=== PATIENT | female | born 1955 | race Caucasian/White ===

== ENCOUNTER 2021-09-08 08:21 | Inpatient (IN) | payer BC, MEDICARE, SELFPAY ==
[2021-09-08] VITALS (18 sets, daily range): BP systolic 63–199; BP diastolic 49–142; PULSE 106–134; RESP 11–33; O2SAT 84–96; BMI 28.7
--- NOTE | 2021-09-08 08:44 | ECG_ITS ---
[facility] Test Date: 2021-09-08 Pat Name: Guanakito Ferraro Department: Room: Gender: Female Regional Business Development Manager: : 1955 Requested By: Evert Sanchez Order Number: [id number] Liyah MD: Axel Weeks M.D. Measurements Intervals [place] Rate: 113 P: 62 [place]: 139 QRS: 44 QRSD: 77 T: 37 QT: 286 QTc: 393 Interpretive Statements SINUS TACHYCARDIA POSSIBLE LEFT ATRIAL ENLARGEMENT [-0.1mV P-WAVE IN V1/V2] NONSPECIFIC ST & T-WAVE ABNORMALITY ST elevation in the precordial leads suggesting recent anteroseptal PR ABNORMAL RHYTHM ECG INTERPRETATION BASED ON A DEFAULT AGE OF 40 YEARS No previous ECG available for comparison Electronically Signed On 09-08-2021 17:12:06 CDT by Axel Weeks M.D. [id number] f
--- NOTE | 2021-09-08 08:46 | ECG_ITS ---
[facility] Test Date: 2021-09-08 Pat Name: Guanakito Ferraro Department: Room: Gender: Female Automotive Consultant: : 1955 Requested By: Evert Sanchez Order Number: [id number] Liyah MD: Axel Weeks M.D. Measurements Intervals [place] Rate: 119 P: 69 SD: 144 QRS: 51 QRSD: 83 T: 48 QT: 296 QTc: 418 Interpretive Statements SINUS TACHYCARDIA POSSIBLE RIGHT ATRIAL ENLARGEMENT [0.25mV P-WAVE] POSSIBLE LEFT ATRIAL ENLARGEMENT [-0.1mV P-WAVE IN V1/V2] MARKED ST ELEVATION, CONSIDER SEPTAL INJURY [MARKED ST ELEVATION W/O NORMALLY INFLECTED T-WAVE IN V1/V2] ACUTE IN INTERPRETATION BASED ON A DEFAULT AGE OF 40 YEARS Compared to ECG 09/08/2021 08:29:21 ST (T wave) deviation now present T-wave abnormality no longer present Electronically Signed On 09-08-2021 17:12:29 CDT by Axel Weeks M.D. [id number] f
--- NOTE | 2021-09-08 08:46 | W.ED.SOB ---
HPI - SOB/Dyspnea General: Chief Complaint: Shortness of Breath/Dyspnea Stated Complaint: RESP DISTRESS Time Seen by Provider: 09/08/21 08:26 History of Present Illness: HPI Narrative: 66-year-old female presents the emergency department chief complaint of shortness of breath and dyspnea. Patient reports that this is been ongoing since last night. Patient reports a longstanding history of smoking about a 61-hmyg-ainr history. Patient does not recall any previous diagnosis of either cardiac or pulmonary issues. She does report she just got back from a long car trip. She reports no calf pain swelling or tenderness. Patient not report any recent infections or illnesses or any other associated symptoms. Associated symptoms: Reports chest pain; Deny abdominal pain, extremity pain, fever(s), nausea or vomiting Review of Systems General: Reports: 10 or more systems reviewed and unremarkable except in HPI and below Const: Denies: fever(s), chills, fatigue or malaise Eyes: Denies: change in vision or blurry vision Card: Reports: chest pain Resp: Reports: dyspnea and wheezing; Denies: productive cough GI: Denies: abdominal pain, nausea or vomiting : Denies: flank pain Musc: Denies: extremity pain or extremity swelling Skin/Breast: Denies: rash or pruritus Neuro: Denies: headache(s) Psych: Denies: anxiety or depression David/Lymph: Denies: easy bleeding All/Imm: Denies: urticaria, throat swelling or facial swelling Physical Exam Const: COMMON NORMALS: no acute distress, patient oriented x3 and healthy appearing HENMT: COMMON NORMALS: normocephalic and atraumatic HEAD & SCALP: normocephalic and atraumatic Eye: COMMON NORMALS: Equal, round and reactive pupils present and EOMs intact bilaterally PUPIL: Yes Equal, round and reactive pupils present Neck/C-Spine: COMMON NORMALS: full ROM, supple and no JVD Lymph: LYMPHATIC: no lymphadenopathy noted Chest: COMMONS NORMALS: normal inspection of the chest and normal palpation of entire chest wall Resp: COMMON NORMALS: normal respiratory effort, No retractions and clear to auscultation bilaterally (Diminished breath sounds appreciated bilaterally with mild scattered expira) EFFORT & INSPECTION: Yes able to speak in complete sentences and Yes symmetric chest movement AUSCULTATION: clear to auscultation bilaterally (Diminished breath sounds appreciated bilaterally with mild scattered expira) Cardio: COMMON NORMALS: no JVD, regular rate and regular rhythm RATE: regular rate and tachycardic RHYTHM: regular rhythm GI: COMMON NORMALS: Normal to inspection, nondistended, normoactive bowel sounds present, Soft to palpation and non-tender INSPECTION: Yes normal to inspection PALPATION: Yes Soft to palpation : COMMON NORMALS: Yes no CVA tenderness BLADDER/KIDNEY EXAM: Yes no CVA tenderness Back/Pelvis: COMMON NORMALS: no CVA tenderness Extremity: COMMON NORMALS: normal to inspection and full ROM Neuro: COMMON NORMALS: patient oriented x3, CN's II-XII intact bilaterally, moves all extremities and no focal motor deficits Psych: COMMON NORMALS: mental status grossly normal, Normal thought process present, cooperative and normal affect THOUGHT PROCESS: Normal thought process present Skin: COMMON NORMALS: no rashes or lesions noted GENERAL SKIN EXAM: no rashes or lesions noted Course ED course: During the patient's time the ED department after about 20 minutes in the ER patient developed signs midsternal chest pain which patient was noted to have EKG changes with more hyperacute ST segment elevations in V2 and V3 Dr. Mckeon on for cardiology immediately contacted recommends to alert patient is STEMI alert recommend start the patient on heparin aspirin and Plavix per protocol. Vital Signs: Vital signs: Vital Signs Pulse Rate 126 H 09/08/21 09:10 Respiratory Rate 31 H 09/08/21 09:10 Blood Pressure 198/142 09/08/21 09:10 Pulse Oximetry 84 L 09/08/21 09:10 MDM - SOB/Dyspnea Medical Decision Making Due to the patient's symptoms and condition lab work and imaging will be obtained we will continue to follow Lab Data : 09/08/21 08:30 09/08/21 08:30 Labs/Radiology: Laboratory Results WBC 14.4 10^3/uL (4.0-10.0) H 09/08/21 08:30 RBC 4.90 10^6/uL (4.1-5.3) 09/08/21 08:30 Hgb 14.8 g/dL (11.5-15.3) 09/08/21 08:30 Hct 44.6 % (37.0-47.0) 09/08/21 08:30 MCV 91.0 fl (81-99) 09/08/21 08:30 MCH 30.2 pg (28.0-34.0) 09/08/21 08:30 MCHC 33.2 g/dL (30.0-36.0) 09/08/21 08:30 RDW 14.2 % (12.1-15.1) 09/08/21 08:30 Plt Count 243 10^3/cmm (130-400) 09/08/21 08:30 MPV 12.4 fL (7.4-10.4) H 09/08/21 08:30 Neut % (Auto) 82.7 % 09/08/21 08:30 Lymph % (Auto) 12.1 % 09/08/21 08:30 Whitley % (Auto) 3.6 % 09/08/21 08:30 Eos % (Auto) 0.7 % 09/08/21 08:30 Baso % (Auto) 0.6 % 09/08/21 08:30 Neut # (Auto) 11.90 10^3/uL (1.8-7.7) H 09/08/21 08:30 Lymph # (Auto) 1.7 10^3/uL (0.8-4.8) 09/08/21 08:30 Whitley # (Auto) 0.5 10^3/uL (0.2-0.9) 09/08/21 08:30 Eos # (Auto) 0.1 10^3/uL (0.0-0.8) 09/08/21 08:30 Baso # (Auto) 0.1 10^3/uL (0.0-0.1) 09/08/21 08:30 Nucleated RBC % (auto) 0 % 09/08/21 08:30 Nucleated RBCs # 0.0 /100WBC 09/08/21 08:30 Sodium 140 mmol/L (136-145) 09/08/21 08:30 Potassium 3.7 mmol/L (3.5-5.1) 09/08/21 08:30 Chloride 104 mmol/L (98-107) 09/08/21 08:30 Carbon Dioxide 20 mmol/L (22-29) L 09/08/21 08:30 Anion Gap 19.7 (5-19) H 09/08/21 08:30 BUN 17 mg/dL (8-23) 09/08/21 08:30 Creatinine 1.0 mg/dL (0.5-0.9) H 09/08/21 08:30 GFR Calculation 55.1 mL/min (90-130) L 09/08/21 08:30 Glucose 142 mg/dL (65-115) H 09/08/21 08:30 Calculated Osmolality 294 mOsm/kg (285-295) 09/08/21 08:30 Calcium 9.2 mg/dL (8.5-10.5) 09/08/21 08:30 Total Bilirubin 0.4 mg/dL (0.15-1.2) 09/08/21 08:30 AST 20 U/L (0-32) 09/08/21 08:30 ALT 24 U/L (0-33) 09/08/21 08:30 Alkaline Phosphatase 121 IU/L (35-105) H 09/08/21 08:30 Troponin T Baseline 229 ng/L (0-10) H* 09/08/21 08:30 NT-Pro-B Natriuret Pep 2502 pg/mL (0-125) H 09/08/21 08:30 Total Protein 7.4 g/dL (6.6-8.7) 09/08/21 08:30 Albumin 4.5 g/dL (3.5-5.2) 09/08/21 08:30 Globulin 2.9 g/dL (1.3-4.6) 09/08/21 08:30 Discharge Plan Discharge Patient Disposition: Admitted As Inpatient Clinical Impression: ST elevation (STEMI) myocardial infarction Condition: Stable Coding Level of Care Code ED Anesthesiology Medical Doctor for Heidy Fwd Exam Comprehensive
[2021-09-08 08:58] LABS: Basophils # 0.1 10^3/uL (0.0-0.1); Basophils % 0.6 %; Eosinophils # 0.1 10^3/uL (0.0-0.8); Eosinophils % 0.7 %; Hematocrit 44.6 % (37.0-47.0); Hemoglobin 14.8 g/dL (11.5-15.3); Lymphocytes # 1.7 10^3/uL (0.8-4.8); Lymphocytes % 12.1 %; Mean Corpuscular HGB Conc 33.2 g/dL (30.0-36.0); Mean Corpuscular Hemoglobin 30.2 pg (28.0-34.0); Mean Platelet Volume 12.4 fL (7.4-10.4); Monocytes # 0.5 10^3/uL (0.2-0.9); Monocytes % 3.6 %; Neutrophils % 82.7 %; Nucleated Red Blood Cells % 0 %; Platelet Count 243 10^3/cmm (130-400); Red Cell Distribution Width 14.2 % (12.1-15.1); White Blood Count 14.4 10^3/uL (4.0-10.0)
[2021-09-08] MEDS: ondansetron 2 mg/ML SDV 2 mL 4 MG IVP (09:03)
[2021-09-08] MEDS: fentaNYL 50 mcg/mL INJ 2mL IVP ×2 (09:04→12:01)
[2021-09-08] MEDS: nitroglycerin 0.4 mg sublingual Tablet SUBLINGUAL (09:04)
--- NOTE | 2021-09-08 09:05 | PC.NURSE ---
DR. QUINTANILLA AT BEDSIDE SPEAKING WITH PT.
[2021-09-08] MEDS: sodium chloride 0.9% 500 ML 999 ML IV (09:09)
[2021-09-08] MEDS: heparin 5,000 unit/mL INJ 1 mL 4000 UNIT IVP (09:13)
--- NOTE | 2021-09-08 09:13 | XACV_ITS ---
Exam Room: 2 Ht: 168 cm Wt: 81 kg BSA: 1.96 m2 Gender: Female : 1955 Any Known Allergies: Codeine Exam Priority: Routine Procedure(s): Procedure Description: Diagnostic procedure Procedure Description: PCI procedure Procedure Description: Left Heart Catheterization Procedure Description: Drug Eluting Coronary Stent Procedure Description: PTCA Procedure Description: Miscellaneous Procedure Description: Angio-Seal Procedure Description: ACT Procedure Description: Coronary Angiography Diagnostic Cath Status: Emergency Diagnostic Findings * Left Main has no significant disease. * Circumflex has mild to moderate luminal irregularities. No significant stenosis.. * INDICATION: 66-year-old woman with past medical history of hypertension and hyperlipidemia who was not feeling well for 1 week. Started having shortness of breath for the last 8 to 12 hours. Early this morning she had significant chest and back discomfort that was 2 to 3 hours prior to EMS arrival.. EMS was called who brought her to the emergency room. Cardiology was contacted at 9:01 AM and as EKG was demonstrating anteroseptal/anterior leads ST elevation, STEMI alert was called and patient was brought to the cardiac Sterilization Tech emergently.. * Proximal Left Anterior Descendin% stenosis, JOSE: 2 flow. This is right before medium to large sized diagonal artery takeoff. Possible thrombus seen extending into ostial diagonal.. * Mid Right Coronary Artery: Moderate 60 to 70% stenosis.. * Coronary angiography shows right dominance. PCI Status: Emergency PCI Indication: Immediate PCI for STEMI Interventional Findings * Procedure detail: We obtained access in right common femoral artery using micropuncture. 6 Lithuanian XB 3.5 guide catheter was used to engage left main artery. Using 0.014 run-through guidewire we crossed proximal LAD stenosis and the wire was placed in the distal vessel. A second wire was put in the diagonal artery. We performed predilation of the vessel with 2.5 x 12 mm semicompliant balloon. This was followed by placement of 2.75 x 18 mm resolute Mobile drug-eluting stent. Proximal portion of the stent was postdilated with 3.0 x 8 mm NC balloon. There was pinching of the ostial diagonal artery. The run-through wire was advanced into the diagonal artery and ostial diagonal artery had balloon angioplasty performed with 2.5 x 12 mm semicompliant balloon. At this time final angiogram showed excellent stent expansion, no residual stenosis and good flow. Guidewire and guide catheter were removed. Femoral artery access site was closed with Angio-Seal. Patient left the Sterilization Tech in a stable condition.. * Proximal Left Anterior Descendin% stenosis treated with a AB TREK 2.50X12 RX BALLOON, MARY LOU R STEPHAN 2.75X18 CLEMENTE, and MDT CAMELIA EUPHORA RX [id number] BALLOON. 0% residual stenosis, JOSE: 3 flow. * 1st Diagonal: 70% stenosis treated with a AB TREK 2.50X12 RX BALLOON. 0% residual stenosis, JOSE: 3 flow. Conclusions 1. Critical, 2. 99% stenosis of proximal LAD 3. . 4. S/p successful revascularization with CLEMENTE x1. 5. Balloon angioplasty of ostial diagonal artery performed.. 6. Proximal Left Anterior Descending was treated with a Balloon, Drug Eluting Stent, and Balloon. 7. 1st Diagonal was treated with a Balloon. Recommendations * Transfer to ICU. * Stat echocardiogram. * Continue aspirin and Plavix for at least 1 year. * High intensity statin therapy. * Patient has residual moderate RCA stenosis. Will benefit from outpatient stress test. * Patient's blood pressure is stable at this time. However she has been staying tachycardic and is at risk of developing cardiogenic shock. Will need close monitoring. * Will need beta-faustina and lisinopril therapy initiated if blood pressure stays stable. Interventional RX Recommendation: PCI w/o planned CABG Diagnostic RX Recommendation: PCI w/o planned CABG Anticoagulation: Heparin Pressures Phase:Rest AO : 104 / 84 ( 94 ) @ 10:36:00 AM 141 / 108 ( 125 ) @ 10:56:00 AM 155 / 90 ( 117 ) @ 11:00:00 AM / ( -8 ) @ 11:10:00 AM 139 / 79 ( 105 ) @ 11:12:00 AM LV : 154 / 7 / 43 @ 11:12:00 AM 150 / 2 / 36 @ 11:12:00 AM Valves Phase:DefaultPhase AV : 13.0 @ 10:26:22 AM AV Mean Gradient: 11.0 @ 10:26:22 AM Clinical Evaluation EBL: 5mL-10mL Procedural Details Procedure Consent Obtained. Pre-Procedure Time Out. Identified patient by full name and date of as verbalized by the patient/guarantor. Does the consent match the physician's order: Yes. Accurate & Complete Informed Consent: Yes. Inpatient/Outpatient History & Physical on Chart: Yes. If H&P is completed, is and addenduem needed: No; If yes, is the addendum complete: N/A. Visualize and Verify Site with Patient/Guarantor: N/A. Relevant Radiology Images available: Yes. The risks, benefits, and alternatives of sedation and/or procedure were discussed by physician. The patient agrees to continue. Procedure started. Baseline sample Acquired. HR: 122 BPM. [facility] Clinical Fraility Score: 3: Managing Well. Sterilization Tech Indications: ACS <= 24 hours. Chest Pain Symptom Assessment: Typical Angina Symptoms. Cardiovascular Instability: Yes, if yes, Persistant Ischemic Symptoms. Correct patient, site and procedure confirmed by cath team. Current diagnosis: STEMI. PERRLA. Strong, equal hand vp product bilaterally. Lungs clear x 5 lobes. IV Site on Arrival: 18 gauge in the right anticubital. IV Site on Arrival: 18 gauge in the left anticubital. IV Fluids: 0.9% NaCl at KVO. mL infused prior to slab inspector. Oxygen started at 5liters/min via nasal canula. bilateral groins was prepped with chloroprep then draped in the usual sterile fashion. Physician notified. Physician arrived. Physician scrubbed in. Immediate Pre-Procedure Time Out. Correct Patient: Yes; Correct Procedure: Yes; Correct Site: Yes; Correct Patient Position: Yes; Correct Supplies: Yes; Dried Flammable Prep: Yes; Blood Products Available: N/A;. Lidocaine 1% infiltrated to the right groin. Current Diagnosis : STEMI. 100% NRB placed on the patient. Arterial access obtained with micropuncture set. Sheath upsized to a 6 Fr. 6 belarusian XB 3.5 guide catheter was inserted over the wire. Runthrough guidewire was advanced through the guide catheter to lesion in the diagonal. Runthrough guidewire was advanced through the guide catheter to lesion in the prox LAD. Inflation number : 1 A AB TREK 2.50X12 RX BALLOON was prepped and advanced across the Prox LAD , then inflated to 8 DIRK for 20 seconds. Inflation number: 2 The AB TREK 2.50X12 RX BALLOON was reinflated across the Prox LAD, to 8 DIRK for 0:21 seconds. Balloon out. PCI Indication : Immediate PCI for STEMI. Inflation Number : 3 A MARY LOU Howell STEPHAN 2.75X18 CLEMENTE -Lot Number# [id number] was prepped and advanced across the Prox LAD. The stent was deployed at 12 DIRK for 0:34 seconds. Exp. 2024-03-12. Stent balloon out over wire. LAD wire re-directed to the diagonal. Diagonal wire out. Results checked. Inflation number : 1 A AB TREK 2.50X12 RX BALLOON was prepped and advanced across the 1st Diag , then inflated to 8 DIRK for 0:13 seconds. Balloon out. Runthrough wire re-directed to the lesion in the Prox LAD. Inflation number : 4 A MARY LOU DENISE EUPHORA RX [id number] BALLOON was prepped and advanced across the Prox LAD , then inflated to 12 DIRK for 0:21 seconds. Balloon out. Results checked. Wire out. Guide catheter out. A 5 belarusian JR4 catheter in over wire. EDP Sample taken: LV 154/7,43; HR: 102 BPM; SpO2: 95%. Pullback taken: LV 150/2,36; AO 139/79(105); Mean: 11mmHg, Peak to Peak: 13mmHg, SEP: 23sec/min; HR: 101 BPM; SpO2: 94%. ACT drawn. Results 242 seconds. Therapeutic limits - pre-heparin administration 90-150 seconds and monitoring heparin during a vascular procedure >250 seconds. Multiple views taken of right coronary artery. Catheter removed over the standard wire. A Right femoral angiogram was performed to determine safe placement of closure device. A Angio-Seal VIP ([place]) was successful obtaining hemostatsis at the Right Femoral artery insertion site. Angioseal placed without complications. No signs or symptoms of hematoma noted. Sterile dressing applied per usual sterile fashion. Lot #[id number]. Exp. 2022-05-25. Post Procedure: Pulses reassessed and unchanged. PERRLA. Strong, equal hand vp product bilaterally. No VTE prophylaxis required. Medication's Wasted: Nitro = 49.8 mg. Medication's Wasted: Heparin = 4000 units. Total IV fluids: 100 mL. PCI Indication: STEMI. Post-op diagnosis: PCI of the Prox LAD, PTCA of the 1st diagonal. Complications: none. Estimated blood loss: 5mL-10mL. Responsiveness - Normal response to verbal stimuli; alert and oriented, PERRLA. Airway - Unaffected, no intervention required; spontaneous ventilation. Circulation: W/N/L, pulses unchanged. Nausea/Vomiting: No. Procedure completed. Patient transferred by bed to ICU. Vital chart was stopped. Access Site Site: Right Femoral artery Sheath Size: 6 Fr Hemostasis Method: Angio-Seal VIP ([place]) Hemostasis Success: Successful Procedure Medications Start: 9:27 AM Stop: 9:27 AM Medication: Versed Amount: 1 mg Route: I.V. Start: 9:27 AM Stop: 9:27 AM Medication: Fentanyl Amount: 50 mcg Route: I.V. Start: 9:32 AM Stop: 9:32 AM Medication: Heparin Amount: 5000 units Route: I.V. Start: 9:56 AM Stop: 9:56 AM Medication: Aggrastat 12.5 mg/250 mL Amount: 41 ml Route: I.V. bolus Start: 9:56 AM Stop: 9:56 AM Medication: Aggrastat 12.5 mg/250 mL Amount: 14.6 ml/hr Route: I.V. drip Start: 9:57 AM Stop: 9:57 AM Medication: Nitrogylcerin Amount: 200 mcg Route: I.C. Start: 10:01 AM Stop: 10:01 AM Medication: Versed Amount: 1 mg Route: I.V. Start: 10:01 AM Stop: 10:01 AM Medication: Fentanyl Amount: 50 mcg Route: I.V. Start: 10:12 AM Stop: 10:12 AM Medication: Heparin Amount: 2000 units Route: I.V. Start: 10:15 AM Stop: 10:15 AM Medication: Lasix (furosemide) Amount: 60 mg Route: I.V. Start: 10:21 AM Stop: 10:21 AM Medication: Brilinta Amount: 180 mg Route: P.O. I, the attending physician, have reviewed and verified all procedure medications. Yes, all medications given per verbal order Report Signatures Finalized by Bogdan Hendrix MD on 09/18/2021 10:08 AM
[2021-09-08] MEDS: clopidogrel 75 mg Tablet PO (09:15)
[2021-09-08 09:19] LABS: Alanine Aminotransferase 24 U/L (0-33); Albumin Level 4.5 g/dL (3.5-5.2); Alkaline Phosphatase 121 IU/L (35-105); Anion Gap 19.7 (5-19); Aspartate Amino Transferase 20 U/L (0-32); Blood Urea Nitrogen 17 mg/dL (8-23); Calcium 9.2 mg/dL (8.5-10.5); Carbon Dioxide 20 mmol/L (22-29); Chloride 104 mmol/L (98-107); Globulin 2.9 g/dL (1.3-4.6); Glomerular Filtration Rate 55.1 mL/min (90-130); Glucose 142 mg/dL (65-115); NT Pro B Type Natriuretic Pept 2502 pg/mL (0-125); Osmolality Calculated 294 mOsm/kg (285-295); Potassium 3.7 mmol/L (3.5-5.1); Sodium 140 mmol/L (136-145); Total Bilirubin 0.4 mg/dL (0.15-1.2); Total Protein 7.4 g/dL (6.6-8.7)
--- NOTE | 2021-09-08 09:19 | PM.HP ---
Providers/Chief Complaint Admitting Physician: Bogdan Hendrix MD/ Interventional Cardiology Chief Complaint: RESP DISTRESS History of Present Illness Guanakito Ferraro is a 66 year old female with past medical history of hyperlipidemia, hypertension and tobacco abuse who has presented to the hospital with shortness of breath that started last night. She was also having back and chest discomfort that started early this morning about 2 to 3 hours back EKG shows a ST elevations in anteroseptal leads. Cardiac Vascular Ultrasound Technologist was activated and patient brought to the cardiac Vascular Ultrasound Technologist for emergent cath. Review of Systems General: Reports: 10 or more systems reviewed and unremarkable except in HPI and below Const: Denies: fever(s), chills, fatigue or malaise Eyes: Denies: change in vision or blurry vision Card: Reports: chest pain Resp: Reports: dyspnea and wheezing; Denies: productive cough GI: Denies: abdominal pain, nausea or vomiting : Denies: flank pain Musc: Denies: extremity pain or extremity swelling Skin/Breast: Denies: rash or pruritus Neuro: Denies: headache(s) Psych: Denies: anxiety or depression David/Lymph: Denies: easy bleeding All/Imm: Denies: urticaria, throat swelling or facial swelling Medications/Allergies Home Medications Medication Instructions Recorded Confirmed Last Taken Type atorvastatin 20 mg tablet (Lipitor) 20 mg PO DAILY@172909/08/21 09/08/21 09/07/21 History escitalopram oxalate 20 mg tablet 20 mg PO DAILY@172909/08/21 09/08/21 09/07/21 History (Lexapro) ibuprofen 200 mg tablet 600 mg PO Q6H PRN 09/08/21 09/08/21 09/07/21 History losartan 50 mg tablet 50 mg PO DAILY@172909/08/21 09/08/21 09/07/21 History Allergies Allergy/AdvReac Type Severity Reaction Status Date / Time codeine Allergy ADR-Chest Verified 09/08/21 08:46 Pain PFSH Acute PFSH: Medical History Hyperlipidemia Hypertension Social History Smoking and tobacco status: current every day smoker Vitals/I&O/Wt Last Vital Signs Pulse 126 H 09/08/21 09:10 Resp 31 H 09/08/21 09:10 BP 198/142 09/08/21 09:10 Pulse Ox 84 L 09/08/21 09:10 Weight last 48 hrs Weight 178 lb Physical Exam Narrative: GENERAL: Patient is alert, awake and oriented x3. [] NECK: No jugular vein distension. [] HEENT: No cyanosis. No icterus. No pallor. [] HEART: Tachycardic, Regular S1 and S2. LUNGS: Clear to auscultate bilaterally. [] ABDOMEN: Soft, nontender and nondistended. Positive bowel sounds. No guarding, rebound or tenderness. [] CENTRAL NERVOUS SYSTEM: Grossly nonfocal. [] EXTREMITIES: Lower extremities with 1+ edema bilaterally. Pulses palpable in the lower extremities, both dorsalis pedis and posterior tibial. [] Data : 09/08/21 08:30 09/08/21 08:30 A&P Assessment and plan (1) ST elevation (STEMI) myocardial infarction: Status: Acute (2) Hyperlipidemia: Status: Acute (3) Hypertension: Status: Acute (4) Tobacco abuse: Status: Acute Plan Patient has presented with acute ST elevation OH. Cardiac Vascular Ultrasound Technologist has been activated and patient being brought to the Vascular Ultrasound Technologist. We will start aspirin and Brilinta. Heparin bolus given Order echocardiogram Patient will be transferred to ICU post cardiac cath. Patient on beta-faustina and losartan High intensity statin therapy Attestations Medical Necessity Statement*: Care expected to cross 2 midnights Coding Level of Care Code Acute Filler And Trimmer for [facility] Fwsarkis Diagnoses ST elevation (STEMI) myocardial infarction I21.3 Hyperlipidemia E78.5 Hypertension I10 Tobacco abuse Z72.0
[2021-09-08 09:23] LABS: Troponin(5th) Baseline 229 ng/L (0-10)
--- NOTE | 2021-09-08 10:46 | ECG_ITS ---
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 Measurements Intervals [place] Rate: 123 P: 61 VA: 112 QRS: 58 QRSD: 84 T: 72 QT: 297 QTc: 426 Interpretive Statements SINUS TACHYCARDIA WITH SHORT VA INTERVAL LOW QRS VOLTAGE IN PRECORDIAL LEADS [QRS DEFLECTION < 1.0 mV IN CHEST LEADS] SEPTAL MYOCARDIAL INFARCTION , OF INDETERMINATE AGE [40+ ms Q WAVE IN V1/V2] MARKED ST ELEVATION, CONSIDER ANTERIOR INJURY [MARKED ST ELEVATION W/O NORMALLY INFLECTED T-WAVE IN V2-V5] ACUTE MA INTERPRETATION BASED ON A DEFAULT AGE OF 40 YEARS Compared to ECG 09/08/2021 08:56:10 Short VA interval now present Low QRS voltage now present Myocardial infarct finding now present ST (T wave) deviation still present Electronically Signed On 09-08-2021 17:19:03 CDT by Axel Weeks M.D. [id number]
--- NOTE | 2021-09-08 11:17 | USCV_ITS ---
Guanakito Ferraro Age: 66 Gender: F : 1955 Exam Date: 09/08/2021 11:50 Ordering Phys: Bogdan Hendrix M.D ([email or web address]) Technologist: GANGA Exam Location: [facility] [place] Indication: POST STEMI BP: 97 / 76 HR: 131 Rhythm: Sinus Technical Quality: Suboptimal MEASUREMENTS (Male / Female) Normal Values 2D ECHO LV Ejection Fraction MOD 2C 34.1 % LV Ejection Fraction 2C AL 36.2 % LA Width 3.4 cm LA Height 3.9 cm RA Width 3.2 cm RA Height 3.3 cm IVC Diameter 1.5 cm DOPPLER AV Peak Velocity 243.0 cm/s LVOT Peak Velocity 142.0 cm/s MV Area PHT 4.5 cm squared Mitral E to A Ratio 0.9 MV E' Velocity 37.0 cm/s Mitral E to MV E' Ratio 10.8 Mitral E to LV E' Lateral Ratio 11.3 Mitral E to LV E' Septal Ratio 10.3 TR Peak Velocity 206.7 cm/s TR Peak Gradient 17.1 mmHg TR Mean Velocity 140.2 cm/s TR Mean Gradient 9.3 mmHg TR Velocity Time Integral 25.1 cm TV Peak E Velocity 34.0 cm/s Right Atrial Pressure 3.0 mmHg Pulmonary Artery Systolic Pressu 20.1 mmHg FINDINGS Left Ventricle Technically limited quality echocardiogram because of poor ultrasonic windows. LV systolic function is severely reduced with EF of 20 to 25%. Apical wall is dyskinetic. Severe global hypokinesis. Grade 1 diastolic dysfunction Right Ventricle RV is hypokinetic Right Atrium Grossly normal Left Atrium Grossly normal Mitral Valve Grossly normal. Mild mitral regurgitation Aortic Valve Aortic valve is thickened. Mild aortic stenosis with mean gradient of 11 mmHg. Tricuspid Valve Mild tricuspid regurgitation. Pulmonic Valve Not visualized Pericardium Grossly normal Aorta Not well-visualized IVC CONCLUSIONS Technically limited quality echocardiogram because of poor ultrasonic windows. LV systolic function is severely reduced with EF of 20 to 25%. Apical wall is dyskinetic. Severe global hypokinesis. Grade 1 diastolic dysfunction. RV is hypokinetic Mild mitral regurgitation. Aortic valve is thickened. Mild aortic stenosis with mean gradient of 11 mmHg. Mild tricuspid regurgitation No comparison studies are available Bogdan Hendrix MD (Electronically Signed) Final Date: 09 September 2021 11:57 S
--- NOTE | 2021-09-08 11:18 | USR_ITS ---
PROCEDURE INFORMATION: Exam: US Duplex Lower Extremity Arteries Exam date and time: 09/08/2021 11:28 AM Age: 66 years old Clinical indication: Other: Weak pulse; Additional info: Absent pulse TECHNIQUE: Imaging protocol: Real-time ultrasound scan of the arteries of the bilateral lower extremities with 2-D mckenzie scale, color Doppler flow and spectral waveform analysis. Images documented and saved. COMPARISON: No relevant prior studies available. FINDINGS: Right common femoral artery: No occlusion or significant stenosis. Biphasic waveform. Right superficial femoral artery: No occlusion or significant stenosis. Biphasic waveform. Right popliteal artery: No occlusion or significant stenosis. Biphasic waveform with somewhat decreased amplitude. Right calf/foot arteries: No occlusion or obvious stenosis in the visualized arteries however the assessment of the entire length was not performed. . Monophasic waveforms. Dorsalis pedis artery is patent. Left common femoral artery: No occlusion or significant stenosis. Biphasic waveform. Left superficial femoral artery: No occlusion or significant stenosis. Biphasic waveform. Left popliteal artery: No occlusion or significant stenosis. Biphasic waveform with somewhat decreased amplitude. Left calf/foot arteries: No occlusion or obvious stenosis in the visualized arteries segments however the assessment of the entire length was not performed. Monophasic waveforms. Dorsalis pedis artery is patent. Soft tissue: There is a left Farias's cyst measuring 5.9 x 2.5 x 2.3 cm. A left Farias's cyst is also noted measuring 4.1 x 1.1 x 4.2 cm with wall thickening and internal debris. US/[place] [id number] IMPRESSION: 1. No severe stenosis or occlusion is visualized of the main femoropopliteal branches. 2. Somewhat decreased amplitude spectral waveforms in the popliteal segments which may represent small peripheral disease in the calf region. Additional assessment by CTA or MRA may be obtained if clinically indicated. 3. Bilateral Farias's cysts as described above.
[2021-09-08 11:46] LABS: ABG PCO2 35.3 mmHg (35-45); Alveolar-Arterial Oxygen Gradi 5.3 mmHg (5-10); Arterial Blood Gas Hematocrit 34.6 % (37-47); Base Excess ABG -8.3 mmol/L (-2.0-2.0); Blood Gas Operator Identificat GD; Blood Gas Sample Site Brachial, right; Blood Gas Sample Type Arterial; Carboxyhemoglobin 1.4 %THgb (0.4-20.1); HCO3 ABG 17.3 mmol/L (22-26); HGB O2 Sat 90.6 % (95-100); Ionized Calcium Level - ABG 1.1 mmol/L (1.1-1.4); Oxygen Device NC; Oxygen Saturation ABG 92.8; PO2 ABG 65.6 mmHg (80.0-100.0); Potassium Level - ABG 3.8 mmol/L (3.5-5.0); Total Hemoglobin 11.3 g/dL (12-16)
--- NOTE | 2021-09-08 11:55 | XR_ITS ---
WS: [id number] Portable AP upright chest, 09/08/2021 Clinical Data: Post AR Comparison: None. Findings: No nodules, masses or effusions are seen. There is a patchy opacity in the left lower lobe which could represent pneumonia. Right lung is clear. The heart is normal. The pulmonary vascularity is not increased. No pneumothorax is seen. The aortic arch and descending thoracic aorta show mild to rtuosity. Monitor leads are on the chest wall. XR/XR chest 1V portable [id number] Impression: Patchy left lower lobe opacity which could represent pneumonia.
[2021-09-08] MEDS: tirofiban 5 MG/100 ML PREMIX 9.6 MG IV (12:06)
[2021-09-08 12:22] LABS: Troponin 5 2HR 490.6 ng/L (0-10); Troponin 5 2HR Delta 261.6 ABS# (0-10)
--- NOTE | 2021-09-08 12:28 | PC.NURSE ---
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 Family at bedside.
--- NOTE | 2021-09-08 13:48 | ANES.PREANE2 ---
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 Medications/Allergies Home Medications Medication Instructions Recorded Confirmed Last Taken Type atorvastatin 20 mg tablet (Lipitor) 20 mg PO DAILY@172909/08/21 09/08/21 09/07/21 History escitalopram oxalate 20 mg tablet 20 mg PO DAILY@172909/08/21 09/08/21 09/07/21 History (Lexapro) ibuprofen 200 mg tablet 600 mg PO Q6H PRN 09/08/21 09/08/21 09/07/21 History losartan 50 mg tablet 50 mg PO DAILY@172909/08/21 09/08/21 09/07/21 History Allergies Allergy/AdvReac Type Severity Reaction Status Date / Time codeine Allergy ADR-Chest Verified 09/08/21 08:46 Pain Current Medications Generic Name Dose Route Start Last Admin Trade Name Freq PRN Reason Stop Dose Admin Fentanyl 50 mcg 09/08/21 10:39 09/08/21 12:01 Fentanyl 50 Mcg/Ml Inj 2ml IVP 50 mcg PRN PRN Administration PAIN Norepinephrine Bitartrate 4 mg 254 mls @ 0 mls/hr 09/08/21 11:30 09/08/21 12:29 / Dextrose IV 10 mcg/min .Q0M CATALINA 38.1 mls/hr Titration Protocol Per Protocol Tirofiban/Sodium Chloride 5 mg in 100 mls @ 0 mls/hr 09/08/21 11:45 09/08/21 12:06 Aggrastat IV 09/09/21 14:00 0.1 mcg/kg/min .Q0M CATALINA 9.6 mls/hr Administration Protocol Per Protocol [facility] Anesthesia Medical History Hyperlipidemia Hypertension Social History Smoking and tobacco status: current every day smoker Data Anesthesia : 09/08/21 08:30 09/08/21 08:30 Short CBC 09/08/21 Range/Units 08:30 WBC 14.4 H (4.0-10.0) 10^3/uL Hgb 14.8 (11.5-15.3) g/dL Hct 44.6 (37.0-47.0) % MCV 91.0 (81-99) fl Plt Count 243 (130-400) 10^3/cmm Neut % (Auto) 82.7 % Neut # (Auto) 11.90 H (1.8-7.7) 10^3/uL BMP 09/08/21 08:30 Sodium 140 Potassium 3.7 Chloride 104 Carbon Dioxide 20 L BUN 17 Creatinine 1.0 H Glucose 142 H Calcium 9.2 Cardiac Enzymes 09/08/21 09/08/21 09/08/21 Range/Units 08:30 08:30 11:30 Troponin T Baseline 229 H* (0-10) ng/L Troponin T 120 Minute 490.6 H (0-10) ng/L Delta Troponin T 261.6 H* (0-10) ABS# NT-Pro-B Natriuret Pep 2502 H (0-125) pg/mL Liver Function 09/08/21 Range/Units 08:30 Total Bilirubin 0.4 (0.15-1.2) mg/dL AST 20 (0-32) U/L ALT 24 (0-33) U/L Alkaline Phosphatase 121 H (35-105) IU/L Albumin 4.5 (3.5-5.2) g/dL ABG 09/08/21 11:30 Specimen Type Arterial Sample Site Brachial, right ABG pH 7.30 L ABG pCO2 35.3 ABG pO2 65.6 L ABG HCO3 17.3 L ABG O2 Saturation 92.8 ABG Base Excess -8.3 L A-a O2 Gradient 5.3 O2 Delivery Device Nc O2 Liters/Min 5.0 Cardiac Studies: No Data to Display
--- NOTE | 2021-09-08 14:03 | PM.MISC ---
Miscellaneous Note Purpose of Documentation: Event note Note: Patient underwent coronary angiogram that showed severe, 99% occlusion of proximal LAD. She underwent successful revascularization with CLEMENTE x1. She stayed tachycardic throughout the procedure and prior to that. She was transferred to ICU. She was loaded with aspirin and Brilinta. Was also kept on Aggrastat drip. Initially was she was stable however then started becoming hypotensive. Extremities were cold. Findings were consistent with cardiogenic shock. She was started on Levophed. Echocardiogram showed severely reduced LV systolic function. She started becoming more short of breath. She had received IV Lasix in the [employer]. She became more uncomfortable and started complaining of right shoulder blade. Her post procedure EKG was unchanged. However given her symptoms and worsening cardiogenic shock we decided to take her to cardiac [employer] emergently for repeat coronary angiogram and LV support device placement. On cardiac [employer] table she had progressive respiratory distress. She was intubated. At this time she lost her pulse and was in PEA. CPR was initiated. Transiently she went into ventricular fibrillation requiring shocks. CPR was continued for close to 30 minutes. 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 I discussed with her family and kept them updated. Family decided to stop CPR and later withdraw care.
--- NOTE | 2021-09-08 14:55 | W.PM.EVENTAC ---
Event Note Event Note: Helped facilitate ACLS code protocol when I arrived. Cardiology and anesthesia present as well. Initially in PEA/Asystole treatment protocol. Did develop Vtach and VFib during code and was defibrillated twice before going back into PEA. Despite prolonged code, multiple doses of epi, bicarb, one dose of amiodarone, no ROSC with adequate BP achieved. When decision made to hold further ACLS was made pulse was present but not adequate perfusion despite pressors. Family made decision to withdraw care. Please see code sheet for details.
--- NOTE | 2021-09-08 18:23 | PM.DDS ---
Discharge Providers DDS Date of Admission: 09/08/21 11:21 Attending Provider at Admission: Bogdan Hendrix M.D Time of : 13:41 Attending Provider at Discharge: Bogdan Hendrix M.D Pronouncing Clinician: Bogdan GOMEZ Diagnoses Probable Cause of Cardiogenic shock Hospital Diagnoses (1) ST elevation (STEMI) myocardial infarction: (2) Hyperlipidemia: (3) Hypertension: (4) Tobacco abuse: (5) Cardiogenic shock: Reason for Visit Reason for Visit RESP DISTRESS Brief History: 66-year-old woman with past medical history of hypertension and hyperlipidemia who was not feeling well for the last 1 week. Had decreased food intake. Night before admission, about 8 to 12 hours prior to her hospital presentation she started having significant shortness of breath. Early this morning about 2 to 3 hours prior to presentation to hospital she started noticing chest discomfort and back pain. EMS was called. I was called at 9:01 AM by emergency room to review her EKG. EKG was consistent with acute anterior wall ST elevation TN. ER was asked to activate STEMI alert. I went down to assess the patient. She had mild respiratory distress. She was hypertensive. She was complaining of active chest pain. Summary Date and Time of Date of : 09/08/21 Time of : 13:41 Summary Summary: 66-year-old woman with past medical history of hypertension and hyperlipidemia who was not feeling well for the last 1 week. Had decreased food intake and nausea Night before admission, about 8 to 12 hours prior to her hospital presentation, she started having significant shortness of breath. Early this morning about 2 to 3 hours prior to presentation to hospital she started noticing chest discomfort and back pain. EMS was called. I was called at 9:01 AM by emergency room to review her EKG. EKG was consistent with acute anterior wall ST elevation TN. I asked the ER to activate STEMI alert. I went to ER to assess the patient. She had mild respiratory distress. She was hypertensive. She was complaining of active chest pain. She was loaded with aspirin, Brilinta and was given heparin. Coronary angiogram demonstrated critical proximal LAD 99% stenosis prior to a large diagonal artery. Thrombus was seen. She underwent successful revascularization with CLEMENTE x1 to the LAD. Balloon angioplasty of ostial diagonal artery was done post stent placement. Patient received IV Lasix during the procedure. Blood pressure was stable during the procedure. She was tachycardic. Chest pain resolved and patient left the Injection Operator in a stable condition. Patient was transferred to ICU. In the ICU she became hypotensive. She was started on Levophed drip. Echocardiogram was performed that showed severely reduced LV systolic function with apical dyskinesis. Findings were consistent with cardiogenic shock. Her respiratory status started worsening. Also complained of chest discomfort. We decided to take her back to the cardiac Injection Operator for repeat angiogram and LV support device placement. As soon as she reached Injection Operator, her respiratory status was significantly worse. Anesthesia was called for emergent intubation. She went into PEA arrest. Prolonged CPR was performed. She had PAD and during active CPR access attempts were unsuccessful. She transiently went into V. fib and was shocked out of it. I updated the family and discussed the situation. Family had a discussion and informed me to stop further CPR attempts. Care was withdrawn after confirmation with the family. Patient at 1:41 PM. Additional Data Advance directives?: No Discharge Plan Discharge Patient Disposition: Condition: Probable Cause of Probable cause of : Cardiogenic shock DS Attestations Time Spent in /Discharge Care*: greater than 30 min Quality - AMI: AMI present?: Yes Quality - Stroke: CVA present?: No Quality - VTE: VTE present?: No Coding Level of Care Code Acute Senior Controls Engineer for Heidy Larkin Diagnoses ST elevation (STEMI) myocardial infarction I21.3 Hyperlipidemia E78.5 Hypertension I10 Tobacco abuse Z72.0 Cardiogenic shock R57.0
--- NOTE | 2021-09-11 12:08 | PC.NURSE ---
Pt's chart accessed for chart review at request of Dr. Rosalva ESPINO.
== END 2021-09-08 15:00 | disposition expired | DRG 247 ==
LOC: ER 09:07 → CCL 09:16 → ICU 11:21
PROVIDERS: Admitting Provider Internal Medicine; Emergency Provider Emergency Medicine; Visit Provider Internal Medicine
PROC: 0BH17EZ Insertion of Endotracheal Airway into Trachea, Via Natural or Artificial Opening (ICD-10-PCS; principal; 2021-09-08 09:10)
PROC: 0BH17EZ Insertion of Endotracheal Airway into Trachea, Via Natural or Artificial Opening (ICD-10-PCS; 2021-09-08 09:10)
DX: I21.09 ST elevation (STEMI) myocardial infarction involving other coronary artery of anterior wall (principal); I47.2 Ventricular tachycardia; R57.0 Cardiogenic shock; I49.01 Ventricular fibrillation; I10 Essential (primary) hypertension; R06.03 Acute respiratory distress; E78.5 Hyperlipidemia, unspecified; Z72.0 Tobacco use
CPT/HCPCS: 36415; 36600; 71045; 80051; 80053; 82330; 82805; 83880; 84484; 85025; 85347; 93005; 93306; 93452; 93925; 94799; 96360; 96374; 96375; 99152; 99153; 99291; C1725; C1760; C1769; C1874; C1887; C1894; C9600; J0171; J0282; J1644; J1940; J2250; J2270; J2370; J2405; J2930; J3010; J3490; J7040; Q9967